=== PATIENT | female | born 1950 | race Caucasian/White ===

== ENCOUNTER 2024-10-22 06:32 | Observation (INO) ==
--- NOTE | 2024-09-22 11:49 | PAT Medication Instructions ---
Medication Instructions Date of Service September 22, 2024 Home Medications albuterol sulfate 90 mcg/actuation aerosol inhaler (Ventolin HFA) 2 puff inhalation QID PRN sob aspirin 81 mg capsule 81 mg PO DAILY atorvastatin 20 mg tablet 20 mg PO HS cholecalciferol (vitamin D3) 125 mcg (5,000 unit) tablet (Vitamin D3) 125 mcg PO DAILY famotidine 40 mg tablet (Pepcid) 40 mg PO HS fluoxetine 10 mg tablet 10 mg PO QAM loratadine 10 mg tablet (Claritin) 10 mg PO DAILY metoprolol tartrate 50 mg tablet 50 mg PO BID multivitamin 1 tab PO DAILY omeprazole 40 mg capsule,delayed release 40 mg PO QAM spironolactone 25 mg tablet 25 mg PO QAM telmisartan 80 mg tablet 80 mg PO QAM ASK your prescriber and surgeon aspirin 81 mg capsule 81 mg PO DAILY DO NOT take the morning of surgery cholecalciferol (vitamin D3) 125 mcg (5,000 unit) tablet (Vitamin D3) 125 mcg PO DAILY loratadine 10 mg tablet (Claritin) 10 mg PO DAILY multivitamin 1 tab PO DAILY spironolactone 25 mg tablet 25 mg PO QAM telmisartan 80 mg tablet 80 mg PO QAM Take morning of surgery With a small sip of water, OTHERWISE NOTHING TO EAT OR DRINK AFTER MIDNIGHT: albuterol sulfate 90 mcg/actuation aerosol inhaler (Ventolin HFA) 2 puff inhalation QID PRN sob (use if needed; please bring rescue inhaler with you to hospital day of surgery if possible) fluoxetine 10 mg tablet 10 mg PO QAM metoprolol tartrate 50 mg tablet 50 mg PO BID omeprazole 40 mg capsule,delayed release 40 mg PO QAM Take evening before surgery albuterol sulfate 90 mcg/actuation aerosol inhaler (Ventolin HFA) 2 puff inhalation QID PRN sob (if needed) atorvastatin 20 mg tablet 20 mg PO HS famotidine 40 mg tablet (Pepcid) 40 mg PO HS metoprolol tartrate 50 mg tablet 50 mg PO BID Other Notes If you have any questions please call us at [phone] or [phone] or [phone] or [phone]
--- NOTE | 2024-09-28 11:21 | Anesthesiology Consultation ---
Date of Service September 28, 2024 Assessment & Plan (1) Encounter for pre-operative examination: - Check BSG DOS (Glucose elevated at 141 on preop labs. No reported hx of diabetes or prediabetes. Will recheck BSG DOS). - Infectious disease screening: Per assessment on 09/28/24- No known recent infectious disease contacts or current infectious disease symptoms. - Outpatient joint assessment: Pt currently scheduled for inpatient pathway. If surgeon requests review for outpatient joint pathway, patient is an acceptable candidate for outpatient joint program from anesthesia standpoint pending surgeon's office assessment that patient is motivated, has good support and completes Same Day Joint Program preop requirements. - Patient concern: Hx PONV. Patient concerned regarding having similar issues with upcoming surgery. Chart Review Chart Review: Acceptable Risk for Surgery and Patient seen in Pre Admission Testing Teaching & Discussion Pre-Anesthesia Teaching/Discussion Notes: Instructed NPO after midnight before surgery,except medications with 15 cc of water. Medication instructions provided according to the PAT guidelines. History Surgery Operation Date: 10/22/24 10:10 Proposed Procedures p Right Total Knee Arthroplasty - Girma Patel, Height/Weight Height: 5 ft 2 in Weight: 94.8 kg Allergies Allergy/AdvReac Type Severity Reaction Status Date / Time adhesive Allergy Unknown Itching, Verified 09/21/24 16:18 "removes skin" Sulfa (Sulfonamide Allergy Unknown Rash Verified 09/21/24 16:18 Antibiotics) Medications Home Medications Medication Instructions Recorded Confirmed Last Taken albuterol sulfate 90 mcg/actuation 2 puff inhalation QID PRN sob 09/21/2409/21 Unknown aerosol inhaler (Ventolin HFA) aspirin 81 mg capsule 81 mg PO DAILY 09/21/24 09/21/24 Unknown atorvastatin 20 mg tablet 20 mg PO HS 09/21/24 09/21/24 Unknown cholecalciferol (vitamin D3) 125 125 mcg PO DAILY 09/21/24 09/21/24 Unknown mcg (5,000 unit) tablet (Vitamin D3) famotidine 40 mg tablet (Pepcid) 40 mg PO HS 09/21/24 09/21/24 Unknown fluoxetine 10 mg tablet 10 mg PO QAM 09/21/24 09/21/24 Unknown loratadine 10 mg tablet (Claritin) 10 mg PO DAILY 09/21/24 09/21/24 Unknown metoprolol tartrate 50 mg tablet 50 mg PO BID 09/21/24 09/21/24 Unknown multivitamin 1 tab PO DAILY 09/21/24 09/21/24 Unknown omeprazole 40 mg capsule,delayed 40 mg PO QAM 09/21/24 09/21/24 Unknown release spironolactone 25 mg tablet 25 mg PO QAM 09/21/24 09/21/24 Unknown telmisartan 80 mg tablet 80 mg PO QAM 09/21/24 09/21/24 Unknown Past Medical History Medical History Acid reflux Anxiety and depression Dyslipidemia HTN (hypertension) Hx of basal cell carcinoma Hx-TIA (transient ischemic attack) Possible (~2012)- weakness, double vision, no residual issues Obesity Osteoarthritis Seasonal allergies Reason for inhaler per patient Sleep apnea CPAP (compliant) Exercise / Class Metabolic Activity II 4-5 Yardwork/Stairs/Walk up hill (one FS: No CP, no SOB) Past Surgical History Surgical History History of postoperative nausea and vomiting Hx of cholecystectomy Hx of colonoscopy Hx of dilation and curettage Hx of hysterectomy Hx of local excision of skin lesion Arm Hx of rotator cuff surgery Past Anesthesia History No Family Hx of Anesthesia Complications and Other (Slow to wake) History of PONV No Hx of PONV Social History Smoking Status: Never smoker Do You Dip or Chew Tobacco: No Hx Alcohol Use: Yes alcohol intake frequency: holidays/special occasions only Hx Substance Use: No substance use type: does not use Review of Systems Patient denies chest pain, shortness of breath, dyspnea on exertion, fever, chills, cough, wheezing, palpitations. Physical Exam Vital Signs BP 127/78 P 61 TEMP 97.9 SP02 95%RA RESP 20 Physical Full cervical extension range of motion. Full TMJ range of motion. TMD > 3.5 finger breaths Mallampati Score II Dentition: missing sides, + caps/crowns Lungs: clear throughout to auscultation Cardiac: regular rate and rhythm, no murmurs noted Spine: normal Carotid arteries: negative bruit Extremities: no LE edema Short, thick neck Lab Results Anesthesia Preop Results Results Anesthesia Widget: WBC 8.77 K/ul (4.8-10.8) 09/28/24 Hgb 12.2 g/dl (12.0-16.0) 09/28/24 Hct 36.5 % (37.0-47.0) L 09/28/24 Plt 256 K/uL (130-400) 09/28/24 Na 135 mmol/L (136-145) L 09/28/24 K 4.5 mmol/L (3.5-5.1) 09/28/24 Cl 101 mmol/L (98-107) 09/28/24 CO2 27 mmol/L (21-32) 09/28/24 BUN 20 mg/dl (6-23) 09/28/24 Creat 0.84 mg/dl (0.6-1.2) 09/28/24 Glucose Level 141 mg/dl (70-99(Fasting)) H 09/28/24 PT 10.9 Seconds (9.0-12.0) 09/28/24 PTT 25 Seconds (21-31) 09/28/24 INR 1.0 (0.9-1.1) 09/28/24 Blood Type A Positive 09/28/24 Antibody Screen NEGATIVE 09/28/24 Testing Electrocardiogram Date: 09/28/24 NSR at 63bpm. "Normal ECG" Chest X-Ray Date: 09/28/24 FINDINGS: Lung volumes are normal. Lungs are clear. There is no pneumothorax or pleural effusion. The heart is mildly enlarged. Mediastinal contours are normal. There is no evidence for pulmonary edema. IMPRESSION: No acute cardiopulmonary findings.
--- NOTE | 2024-10-22 06:28 | History & Physical Bridge Note ---
Date of Service October 22, 2024 History & Physical Bridge Note I have examined the patient, reviewed the History & Physical and in the interval since the performance of the History & Physical I have noted the following changes of clinical significance: no changes noted
[~2024-10-22 06:32] MED LIST: ROPIVACAINE 0.5% 5 MG/ML 30 ML VIAL ONE
[2024-10-22] MEDS ORDERED: PROPOFOL IV EMULSION 10 MG/ML 20 ML VIAL IV ONE (07:03)
[2024-10-22] MEDS ORDERED: MIDAZOLAM HCL 1 MG/ML 2ML VIAL ONE ×2 (07:04→07:50)
[2024-10-22] MEDS ORDERED: PHENYLEPHRINE HCL 10 MG/ML VIAL ONE (07:07)
[2024-10-22] MEDS ORDERED: SODIUM CHLORIDE 0.9% PF INJ 10 ML VIAL ONE (07:07)
[2024-10-22] MEDS: LR 500ML BOLUS, THEN 15ML/HR IV SCH (07:14)
[2024-10-22] MEDS: ACETAMINOPHEN 500 MG TAB PO SCH (07:14)
[2024-10-22] MEDS: GABAPENTIN 300 MG CAP PO SCH (07:14)
[2024-10-22] MEDS: FAMOTIDINE 20 MG TAB PO SCH (07:14)
[2024-10-22] MEDS: SODIUM CHLORIDE 0.9% 1,000 ML IV SCH (07:15)
[2024-10-22] MEDS: LR 60ML/HR IV SCH (07:15)
[2024-10-22] MEDS: dexAMETHasone**PF** 10 MG/ML VIAL IV SCH (07:26)
[2024-10-22] MEDS ORDERED: ATROPINE SULFATE 0.1 MG/ML 10ML SYR IV PRN (07:36)
[2024-10-22] MEDS ORDERED: ePHEDrine sulfate 50 MG/ML AMP IV PRN (07:36)
[2024-10-22] MEDS ORDERED: HYDROmorphone INJ 1 MG/ML SYRINGE IV PRN (07:36)
[2024-10-22] MEDS ORDERED: fentaNYL citrate PF 100 MCG/2 ML VIAL IV PRN (07:36)
[2024-10-22] MEDS ORDERED: ONDANSETRON INJ 2 MG/ML 2 ML VIAL IV PRN ×2 (07:36→11:36)
[2024-10-22] MEDS: TRANEXAMIC ACID 1,000 MG **IV Pre-op IV SCH (07:45)
[2024-10-22] MEDS: ceFAZolin 2000MG 2,000 MG/15 ML SYR IV SCH ×2 (07:58→15:51)
[2024-10-22] MEDS ORDERED: fentaNYL citrate PF 100 MCG/2 ML VIAL ONE (08:34)
[2024-10-22] MEDS ORDERED: ONDANSETRON INJ 2 MG/ML 2 ML VIAL ONE (08:39)
[2024-10-22] MEDS: ORTHO JOINT ANESTHETIC ONE (08:49)
[2024-10-22] MEDS ORDERED: ePHEDrine sulfate 50 MG/5 ML SYR ONE (08:49)
[2024-10-22] MEDS: ROPIV 0.5% 246mg, Ketorolac 30mg, EPINEPHrine 0.5mg in NSS INFIL SCH (09:08)
[2024-10-22] MEDS: TRANEXAMIC ACID 1,000 MG **IV Intra-op IV SCH (09:09)
--- NOTE | 2024-10-22 09:34 | Operative Report ---
PG Post Operative Report Pre & Post Diagnosis Operation Date: 10/22/24 08:00 Pre-Op Diagnosis: Right Knee Osteoarthritis Post-Op Diagnosis: Right Knee Osteoarthritis I identified the patient and participated in the time-out.: Yes Procedure Operation Date: 10/22/24 08:00 Actual Procedures p Right Total Knee Arthroplasty(Right) - Girma Patel DO Surgeon Girma Patel DO Materials Handling Equipment Operator None Estimated Blood Loss 30 Findings Consistent with Post-Op Diagnosis Specimens Right femoral and tibial bone Description of Procedure Implants used: I used a Brittany Persona total knee arthroplasty system with a size 6 narrow PS femur, C tibia, 28 oval patella, and a size 14 CPS polyethylene bearing. All components were cemented in place with Biomet cement. Tasha arrived [facility] for the above procedure. She was seen in the preoperative holding area and the operative extremity was identified and signed. She was given a preoperative antibiotic, TXA, a spinal anesthetic and an adductor nerve block. She was taken back to the operating room and laid on the table in supine position. She was given basic sedation. The operative knee was then prepped and draped in sterile fashion. A timeout was done, and the patient and the operative extremity was properly identified. A midline incision was made directly over the patella. Dissection was taken down to the extensor mechanism. A medial parapatellar arthrotomy was used. The medial retinaculum was released and the fat pad was mostly excised. The knee was flexed and the ACL, PCL, and meniscus were removed. A drill was sent down the center of the femoral canal followed by an intramedullary mandy. Off that mandy a distal femoral cutting block was placed. 9 mm was resected off the distal femur at 5 of valgus. A posterior referencing AP sizing guide was then placed on the distal femur. The femur measured to be a size 6. 2 drill holes were placed in 3 of external rotation. A 4-in-1 cutting block was then impacted into place. Anterior, posterior, and chamfer cuts were then made. The proximal tibia was then exposed. An external tibial alignment guide was placed. A tibial cut guide was then anchored in place and the proximal tibia was then resected. The posterior aspect of the knee was then opened up and any additional meniscus fragments and osteophytes were removed. The tibia measured to be a size C. The tibial plate was then placed in the appropriate rotation and the tibia was drilled and punched. Trial components were then placed. I used a size 14 CPS polyethylene insert. The knee was brought through a full range of motion and felt to be stable. The peg holes for the femoral component were then drilled. The patella was then everted and 9 mm was resected off the posterior aspect of the patella. The patella measured to be a size 28 oval. 3 peg holes were then drilled. A trial patella was placed. The knee was once again brought through a full range of motion and felt to be stable. Trial components were then removed. The surrounding soft tissues were injected with 100 cc of an orthopedic pain control cocktail. All components were then cemented into place with Biomet cement. The final polyethylene insert was then snapped into place. Once cement was dry the tourniquet was deflated. Hemostas is was obtained. A dilute betadyne lavage was then done for 3 minutes. The joint was then irrigated with normal saline solution. The medial parapatellar arthrotomy was then closed with #1 Vicryl suture. The skin was closed with 2-0 Vicryl, 3-0V lock suture, and yudi. A soft compressive dressing was placed. She was then transferred to a hospital bed and taken to the postanesthesia care unit in stable condition. She tolerated the procedure well. I attest to the content of the Intraoperative Record and any orders documented therein. Any exceptions are noted below.
--- NOTE | 2024-10-22 09:58 | XRay Report ---
XR knee RT 1 or 2V routine HISTORY: 73 years-old Female Surgical Post Op right knee arthroplasty COMPARISON: 03/24/2024 TECHNIQUE: 2 views of the right knee FINDINGS: Total joint arthroplasty with patellar resurfacing. Anterior midline skin yudi with expected posto perative soft tissue swelling and deep tissue air. No acute fracture. IMPRESSION: Total joint arthroplasty with expected postoperative changes. ACT 112: Negative or not required by law. The above report was generated using voice recognition software. It may contain grammatical, syntax o r spelling errors. Electronically signed by: Zander Rosenthal M.D. 10/22/2024 9:57 AM
--- NOTE | 2024-10-22 11:03 | Anesthesiology Progress Note ---
Date of Service October 22, 2024 Anesthesia Post Procedure Vital Signs Vital Signs: Temp Pulse Pulse Resp BP Pulse Ox O2 Del Method 10/22/24 11:00 63 14 121/57 L 95 Room Air 10/22/24 10:50 59 L 12 117/57 L 94 Room Air 10/22/24 10:40 61 20 113/55 L 96 Room Air 10/22/24 10:30 36.4 C L 59 L 12 117/62 96 Room Air 10/22/24 10:20 63 14 119/65 96 Room Air 10/22/24 10:10 61 12 125/55 L 92 Room Air 10/22/24 10:00 59 L 12 121/68 95 Oxymask 10/22/24 09:50 65 18 122/73 97 Oxymask 10/22/24 09:40 36.1 C L 63 12 126/100 99 Oxymask 10/22/24 07:04 Room Air 10/22/24 07:04 36.6 C 62 16 183/82 H 97 Room Air O2 Flow Rate 10/22/24 11:00 10/22/24 10:50 10/22/24 10:40 10/22/24 10:30 10/22/24 10:20 10/22/24 10:10 10/22/24 10:00 2 10/22/24 09:50 14 10/22/24 09:40 14 10/22/24 07:04 10/22/24 07:04 Pain Intensity Right Knee: Pain Intensity: 2 Transfer of Care Handoff Completed per policy Notes Mental Status: alert / awake / arousable and participated in evaluation Patient Amnestic to Procedure: Yes Nausea / Vomiting: adequately controlled Pain: adequately controlled Airway Patency, RR, SpO2: stable & adequate BP & HR: stable & adequate Hydration State: stable & adequate Anesthetic Complications: no major complications apparent and Pt Satisfied with anesthetic care
[2024-10-22] MEDS ORDERED: NALOXONE HCL 0.4 MG/1 ML VIAL/CARP IV PRN (11:36)
[2024-10-22] MEDS ORDERED: bisacodyL 10 MG SUPP PR PRN (11:36)
[2024-10-22] MEDS ORDERED: METOCLOPRAMIDE HCL INJ 5 MG/ML 2 ML VIAL IV PRN (11:36)
[2024-10-22] MEDS ORDERED: MAGNESIUM HYDROXIDE SUSP 30 ML UDC PO PRN (11:36)
[2024-10-22] MEDS ORDERED: ALBUTEROL HFA 8 GM INHALER INH PRN (11:36)
[2024-10-22] MEDS ORDERED: HYDROmorphone INJ 0.5 MG/0.5 ML SYR IV PRN (11:36)
[2024-10-22] MEDS: KETOROLAC 30 MG/ML VIAL IV SCH (13:15)
[2024-10-22] MEDS: oxyCODONE HCL IR 5 MG TAB (IMMEDIATE RELEASE) PO PRN (15:24)
[2024-10-22] MEDS: FAMOTIDINE 40 MG TABLET PO SCH (20:23)
[2024-10-22] MEDS: ATORVASTATIN 20 MG TAB PO SCH (20:29)
[2024-10-22] MEDS: SENNA 8.6 MG TAB PO SCH (20:30)
[2024-10-22] MEDS: DOCUSATE SODIUM 100 MG CAP PO SCH (20:30)
[2024-10-22] MEDS: METOPROLOL TARTRATE 50 MG TAB PO SCH (21:59)
[2024-10-22] MEDS: ASPIRIN 81 MG ECTAB PO SCH (21:59)
[2024-10-23 00:23] VITALS: TEMP 97.9
[2024-10-23 07:36] VITALS: RESP 18
--- NOTE | 2024-10-23 07:39 | Orthopedic Progress Note ---
Date of Service October 23, 2024 Assessment & Plan (1) Status post right knee replacement: Overall she is doing fairly well. She is not having much pain in the right knee. She will be seen by physical therapy today for ambulation and range of motion exercises. The nursing staff can change her dressing after physical therapy. She is on aspirin for DVT prophylaxis. She can be discharged to home later today. She will follow-up with orthopedics in 2 weeks. Sam Cordova was seen and examined at bedside this morning. Overall she is doing fairly well. She is not having much pain in the right knee. She has been up and ambulating to the bathroom. She has no complaints.. Review of Systems All systems reviewed & are unremarkable except as noted in HPI & below. Physical Exam On physical exam of the right knee, the dressing is clean and dry. Her leg is out full extension. She has active dorsiflexion plantarflexion of her right ankle.. Results & Data Results & Data Laboratory Results . Diagnostic Findings Postoperative x-rays of the right knee show the prosthesis to be in anatomic alignment without any evidence of fracture, dislocation, or loosening.. PG Care Time/CCT Total # of Minutes Spent Total Time Spent with Patient: Total time spent is greater than 50% in coordination of care (as documented) at patient's floor/unit and/or counseling patient: Coding Level of Care Code 13147 Post Operative Follow-Up Diagnoses Status post right knee replacement Z96.651
--- NOTE | 2024-10-23 07:40 | Discharge Summary ---
Date of Service October 23, 2024 Principal Diagnosis Same as "Discharge Diagnosis" noted below under Discharge Instructions. Discharge Exam On physical exam of the right knee, the dressing is clean and dry. Her leg is out full extension. She has active dorsiflexion plantarflexion of her right ankle.. Discharge Data Procedures Performed Operation Date: 10/22/24 08:00 Actual Procedures p Right Total Knee Arthroplasty(Right) - Girma Patel DO Ordered Studies 10/22/24 05:00 US - OR guided needle placemen Routine Hospital Course (1) Status post right knee replacement: On August 22, 2024 Tasha arrived at [facility] and underwent a right knee replacement without complication. She had a spinal anesthetic that was converted to a general. Postoperatively she was started on aspirin for DVT prophylaxis and transferred to the general orthopedic floors. Her hospital course was uneventful. On postop day #1, her vital signs were stable and her pain was well-controlled. She was able to participate well with physical therapy doing ambulation and range of motion exercises. She was then discharged to home. She will follow-up with orthopedics in 2 weeks. PG Care Time/CCT Total # of Minutes Spent Total Time Spent with Patient: Total time spent is greater than 50% in coordination of care (as documented) at patient's floor/unit and/or counseling patient: Discharge Plan Discharge Items Patient Disposition: Home - Self-Care Reason For Visit: Right Knee Arthritis Discharge Diagnosis: Right knee replacement Activity: As commented below Non-emergency contact: Surgeon Call non-emergency contact if: your wound has increased redness and your wound has increased drainage Follow-up/Referrals: Jessica Oviedo DO [Primary Care Provider] - Diet: Regular Addtl Attending Provider Instructions: Activity and Therapy Recommendations: * If you are using [facility] then therapy will be provided at your home until they feel you have accomplished all of your goals. * If you are using [facility] then Physical Therapy will be provided until they feel you are ready to start Outpatient Physical Therapy. * If you are not using home therapy then Outpatient Physical Therapy should start about 3-5 days from your day of surgery. Therapy will last about 6-10 weeks * It is important not to put a pillow under your knee when you are relaxing or sleeping. It is just as important to make sure you are getting your knee perfectly straight as it is to regain your knee bend. * You were shown a series of exercises in the hospital. Do these exercises three times each day including the exercises you were shown in physical therapy. * Get up and walk several times each day. For the first four weeks, try not to stand or walk for more than one hour at a time. If you do stand or walk for more than one hour, you will not hurt anything, but your leg will likely swell. * As you feel comfortable, you may change from the walker or crutches to a cane and then to independent walking. Medications: * Narcotic You will likely be sent home from the hospital with a prescription for the narcotic pain medication that worked best throughout your stay. * Cefadroxil -take the antibiotic twice a day for 10 days to help prevent infection. * Aspirin Most patients will be required to take Aspirin 81mg twice a day for 6 weeks after surgery. This is obtained [id number] and a prescription is not necessary. * Other medications may be prescribed for specific circumstances. If you have any questions, please call the office at . * Resume previous home medications unless otherwise instructed TEDs/Elastic Stockings: The white elastic stockings help limit swelling and prevent blood clots from forming in your legs.~ The more you wear them, the more they work. Wear them for six weeks. Dressing Care: The dressing can be changed after physical therapy on postop day #1. Daily dry dressing changes for a few days, especially if the incision is still draining some. If the incision is not draining then you may leave the yudi open to air. If there is a little bit of drainage or if the yudi are getting stuck on your clothing then cover the incision with a dry dressing. The yudi will be removed at your 2 week follow-up appointment. Showering: You may shower 5 days from the day of surgery as long as the incision is no longer draining. You may shower with the yudi exposed. Let soapy water run over the yudi and pat them dry. Do not scrub or soak the incision. Diet: You may resume your previous diet. Things To Watch For: * Drainage from the incision site that occurs more than one week after your surgery. * Increased redness at the incision site. * Fever above 102 degrees Fahrenheit. * Unusual chest pain or shortness of breath. * Call [facility] at with any of the above problems Follow-Up Visit: Follow-up with Dr. Patel's office 2-3 weeks after your day of surgery. We will remove your yudi and answer any questions. If you have any additional questions or concerns, Dr Patel is usually in the office at the same time and will be available An appointment was probably scheduled when you signed-up for surgery in the office. If you have any questions call Office Instructions: More detailed instructions as well as Frequently Asked Questions were provided in a folder by our office when you signed-up for surgery. Please review these instructions when you get home. If you have any further questions or concerns, please feel free to call the office at [phone] Pending Studies at Discharge: No Stand-Alone Forms: My [facility] Medications and DC Order Prescriptions: New oxycodone 5 mg tablet 5 mg PO Q6H PRN (Reason: pain) Qty: 30 0RF cefadroxil 500 mg capsule 500 mg PO BID 10 Days Qty: 20 0RF Continued multivitamin Tablet 1 tab PO DAILY atorvastatin 20 mg Tablet 20 mg PO HS famotidine [Pepcid] 40 mg Tablet 40 mg PO HS fluoxetine 10 mg Tablet 10 mg PO QAM omeprazole [Prilosec] 40 mg Capsule,Delayed Release(Dr/Ec) 40 mg PO QAM spironolactone 25 mg Tablet 25 mg PO QAM telmisartan 80 mg Tablet 80 mg PO QAM metoprolol tartrate 50 mg Tablet 50 mg PO BID albuterol sulfate [Ventolin HFA] 90 mcg/actuation Hfa Aerosol Inhaler 2 puff INHALATION QID PRN (Reason: sob) loratadine [Claritin] 10 mg Tablet 10 mg PO DAILY cholecalciferol (vitamin D3) [Vitamin D3] 125 mcg (5,000 unit) Tablet 125 mcg PO DAILY Changed aspirin 81 mg Capsule 81 mg PO BID 42 Days Qty: 0 0RF Discharge Orders: Discharge Order (Routine); Ordered 10/23/24 Ordered By: Girma Patel Admission Data Admit Date/Time: 10/22/24 09:37 Attending Provider: Gimra Patel Admit Provider: Girma Patel Primary Care Provider: Jessica Oviedo
[2024-10-23] MEDS: FLUoxetine HCL 10 MG CAP PO SCH (07:56)
[2024-10-23] MEDS: SPIRONOLACTONE 25 MG TAB PO SCH (07:56)
[2024-10-23] MEDS: LORATADINE 10 MG TAB PO SCH (07:57)
[2024-10-23] MEDS: dexAMETHasone 4 MG TAB PO SCH (09:03)
[2024-10-23] MEDS: LOSARTAN POTASSIUM 50 MG TAB PO SCH (09:04)
[2024-10-23] MEDS: PANTOprazole 40 MG TAB PO SCH (10:07)
[2024-10-23] MEDS: MULTIVITAMIN TAB PO SCH (10:07)
[2024-10-23 10:26] VITALS: BP 110/55; PULSE 72; O2SAT 94
--- OUTSIDE RECORDS SUMMARY | 2024-10-24 06:23 | External Medical Summary | Summary of Care ---
Author Name Unknown Organization [facility] Address [address] [place] [address] Phone [phone] Care Team Providers Care Court Supervisor Name Role Phone Jessica Oviedo DO Primary Care Provider Reason for Visit * Reason Comments Follow Up Encounter Details Date Type Department Care Team ([facility] st Contact Info) Description 10/01/2024 9:30 AM EST Office Visit Otolaryngology [address] [place] [address] Magali Ratliff PA-C [address] [place] [address] Bilateral impacted cerumen* Allergies Active Allergy Reactions Criticality Noted Date Comments Latex 08/31/2024 Sulfa Antibiotics Rash High 05/14/2017 documented as of this encounter (statuses as of 10/01/2024) Medications atorvaSTATin (LIPITOR) 20 MG Tablet 7 Active Famotidine 20 MG Oral Tablet Take 1 Tablet by mouth in the morning and 1 Tablet before bedtime. Active Aspirin 81 MG Tablet Take 1 Tablet by mouth in the morning. Active Fluocinolone Acetonide 0.025 % External Cream (Synalar) Apply to outer ears three times a week 60 g 3 1 Active Vitamin D 125 MCG (5000 UT) Oral Capsule Take by mouth. Ac tive Omeprazole 40 MG Oral Capsule Delayed Release (PriLOSEC) 2 Active Metoprolol Tartrate 50 MG Oral Tablet (Lopressor) 2 Active Premarin 0.625 MG/GM Vaginal Cream (Estrogens, Conjugated) Administer into the vagina daily . Active FLUoxetine HCl 10 MG Oral Capsule (PROzac) Take 1 Capsule by mouth in the morning. Active Telmisartan 80 MG Oral Tablet (Micardis) Take 1 Tablet by mouth in the morning. Active Spironolactone 25 MG Oral Tablet (Aldactone) Take 1 Tablet by mouth in the morning. Active Multivitamin Adult Oral Tablet Chewable Take by mouth. Active Ventolin HFA 108 (90 Base) MCG/ACT Inhalation Aerosol Solution Inhale 2 Puffs by mouth every 4 hours as needed for Cough or Wheezing. 18 g 1 2 Active AeroChamber MV USE WITH VENTOLIN INHALER. 1 Each 2 Active Mupirocin 2 % External Ointment (Bactroban) Apply topically to affected area 3 times a day. Mix with vaseline and apply to wounds on right upper arm until healed 22 g 4 Active documented as of this encounter (statuses as of 10/01/2024) Active Problems No known active problems documented as of this encounter (statuses as of 10/01/2024) Resolved Problems Problem Noted Date Diagnosed Date Resolved Date Encounter for examination fo r normal comparison and control in clinical research program 10/13/2018 06/19/2020 Overview (03/05/2021): DO NOT DELETE [facility] DETECT Study: Project # [id number], Editor Continuity And Script: Young Navarro, PhD. SUMMARY: Goal: Establish test characteristics (sensitivity, specificity, PPV, NPV) of a circulating tumor DNA (ctDNA)-based test for cancer. Hypothesis: Circulating tumor DNA (ctDNA) and elevated protein biomarkers (together, the marker panel) can be detected in asymptomatic individuals with early cancer. Specific Aim 1: Determine the prevalence of a positive marker panel test in a prospective clinical cohort of 10,000 asymptomatic women ages 65 to 75 years. Specific Aim 2: Determine the sensitivity, specificity, positive predictive value (PPV) and negative predictive value (NPV) of a marker panel test to identify histologically proven cancers that develop within 5-years of the marker panel evaluation. CONTACTS: During normal business hours, contact study staff at ; after hours Editor Continuity And Script via the [facility] dozer operator . Please contact study team before resolving/deleting from patients problem list. Study phone number: [phone]. Diagnosis changed due to Research Module. Go to [facility] for study details. Encounter for examination fo r normal comparison and control in clinical research program 10/13/2018 07/18/2022 Overview (03/05/2021): DO NOT DELETE - [facility] Study: Project # [id number], Editor Continuity And Script: Warner Gonzalez, MS, MPH. SUMMARY: Goal: Establish test characteristics (sensitivity, specificity, PPV, NPV) of a circulating tumor DNA (ctDNA)-based test for cancer. - Hypothesis: Circulating tumor DNA (ctDNA) and elevated protein biomarkers (together, the marker panel) can be detected in asymptomatic individuals with early cancer. - Specific Aim 1: Determine the prevalence of a positive marker panel test in a prospective clinical cohort of 10,000 asymptomatic women ages 65 to 75 years. - Specific Aim 2: Determine the sensitivity, specificity, positive predictive value (PPV) and negative predictive value (NPV) of a marker panel test to identify histologically proven cancers that develop within 5-years of the marker panel evaluation. - CONTACTS: During normal business hours, contact study staff at ; after hours Editor Continuity And Script via the [facility] dozer operator . - Please contact study team before resolving/deleting from patients problem list. Study phone number: [phone]. Diagnosis changed due to Research Module. Go to [facility] for study details. documented as of this encounter (statuses as of 10/01/2024) Immunizations Name Administration Dates Next Due COVID-19 mRNA, LNP-s, No Pre serve, 2-Dose Series (Moderna) 01/22/2021,12/19/2020 documented as of this encounter Social History Tobacco Use Types Packs/Day Years Used Date Smoking Tobacco: Never Smokeless Tobacco: Never Tobacco Cessation:Counseling Given: Not Answered Alcohol Use Standard Drinks/Week Comments Yes 0 (1 standard drink = 0.6 oz pur e alcohol) occ Utilities Answer Date Recorded Do you have trouble paying y our heating, water, or electric bill? (Adult - for ages 18 years and over) Not on file 05/04/2024 Is your family able to pay t he heat, water, or electric bill? (Household - for ages 0-17 years) Not on file 05/04/2024 Does your family have access to good internet? (Household - for ages 0-17 years) Not on file 05/04/2024 Social Connections Answer Date Recorded How often do you feel lonely or isolated from those around you? (Adult - for ages 18 years and over) Not on file 05/04/2024 Comments No Sex and Gender Information Value Date Recorded Sex Assigned at Female 06/21/2022 7:04 PM EDT Legal Sex Female 6:27 AM EST Gender Identity Female 06/21/2022 7:04 PM EDT Sexual Orientation Straight 06/21/2022 7: 04 PM EDT documented as of this encounter Last Filed Vital Signs Vital Sign Reading Time Taken Comments Blood Pressure - - Pulse - - Temperature 36.2 C (97.1 F) 10/01/2024 9:31 AM ES T Respiratory Rate - - Oxygen Saturation - - Inhaled Oxygen Concentration - - Weight 87.1 kg (192 lb) 10/01/2024 9:31 AM EST Height 160 cm (5' 2.99") 10/01/2024 9:31 AM EST Body Mass Index 34.02 10/01/2024 9:31 AM EST documented in this encounter Progress Notes * Magali Ratliff PA-C - 10/01/2024 9:30 AM EST 10/01/2024 SUBJECTIVE: Tasha Duggan is a 73 year old female. Chief Complaint Patient presents with Follow Up Nursing Notes: Sobia Garcia LPN 10/01/24 0939 Signed Patient presents today for follow up. States her ears are doing good. Left ear feels she needs her ears cleaned out. HPI: Patient return for routine appt for cerumen removal. She reports left aural fullness and decreased left hearing. Patient Active Problem List Diagnosis (none) - all problems resolved or deleted Current Outpatient Medications Medication Sig Dispense Refill atorvaSTATin (LIPITOR) 20 MG Tablet Famotidine 20 MG Oral Tablet Take 1 Tablet by mouth in the morning and 1 Tablet before bedtime. Aspirin 81 MG Tablet Take 1 Tablet by mouth in the morning. Fluocinolone Acetonide 0.025 % External Cream (Synalar) Apply to outer ears three times a week 60 g3 Vitamin D 125 MCG (5000 UT) Oral Capsule Take by mouth. Omeprazole 40 MG Oral Capsule Delayed Release (PriLOSEC) Metoprolol Tartrate 50 MG Oral Tablet (Lopressor) Premarin 0.625 MG/GM Vaginal Cream (Estrogens, Conjugated) Administer into the vagina daily . FLUoxetine HCl 10 MG Oral Capsule (PROzac) Take 1 Capsule by mouth in the morning. Telmisartan 80 MG Oral Tablet (Micardis) Take 1 Tablet by mouth in the morning. Spironolactone 25 MG Oral Tablet (Aldactone) Take 1 Tablet by mouth in the morning. Multivitamin Adult Oral Tablet Chewable Take by mouth. Ventolin HFA 108 (90 Base) MCG/ACT Inhalation Aerosol Solution Inhale 2 Puffs by mouth every 4 hours as needed for Cough or Wheezing. 18 g 1 AeroChamber MV USE WITH VENTOLIN INHALER. 1 Each 0 Mupirocin 2 % External Ointment (Bactroban) Apply topically to affected area 3 times a day. Mix with vaseline and apply to wounds on right upper arm until healed 22 g 0 No current facility-administered medications for this visit. Review of patient's allergies indicates: Allergen Reactions Sulfa Antibiotics Rash Latex REVIEW OF SYSTEMS Negative for constitutional, heart, lung, liver, kidney, digestive, hematologic, neurologic, rheumatologic, or endocrine complaints except as per history of present illness and past medical history. OBJECTIVE: Temp 36.2 C (97.1 F) (Tympanic) | Ht 1.6 m (5' 2.99") | Wt 87.1 kg (192 lb) | BMI 34.02 kg/m | BSA 1.97 m PHYSICAL EXAM: General: alert, healthy and no distress Ears: Examination of the ears revealed that the auricles were normally formed with no lesions. The external auditory canals were cleaned of bilateral impacted cerumen with forceps and suction under microscope guidance-see below procedure documentation. The tympanic membranes were intact and freely mobile to pneumatoscopy without perforation or significant retraction pockets. Procedure performed by myself-In order to better examine the ears the patient was brought to the microscope room where her ears were examined under the operating microscope with impacted cerumen removed from both canals with suction and forceps atraumatically. She tolerated procedure well. Encounter Diagnoses Name Primary? Bilateral impacted cerumen Yes Plan: Cerumen removed. She will return in 6 weeks. Magali Ratliff PA-C 10/01/2024 8:46 AM documented in this encounter Nursing Notes * Sobia Garcia LPN - 10/01/2024 9:33 AM EST Patient presents today for follow up. States her ears are doing good. Left ear feels she needs her ears cleaned out. documented in this encounter Plan of Treatment Upcoming Encounters Date Type Department Care Team (Late st Contact Info) Description 12/03/2024 2:30 PM EST Office Visit [address]ol[address] [place] [address] Magali Ratliff PA-C [address] [place] [address] 01/14/2025 10:00 AM EST Office Visit Otolaryngology [address] [place] [address] Magali Ratliff PA-C [address] [place] [address] 02/25/2025 1:30 PM EDT Office Visit Ot[address] [place] [address] Magali Ratliff PA-C [address] [place] [address] 04/08/2025 10:30 AM EDT Office Visit Otolaryngology [facility] [address] [facility] [address] [place] [address] Magali Ratliff PA-C [address] [place] [address] 09/01/2025 10:40 AM EDT Office Visit Dermatology [facility] [address] [facility] [place] [address] Dash Romero PA-C [address] [place] [address] Health Maintenance Due Date Last Done Comments Depression Screening 1962 Hepatitis C Screening 1968 DTap/Tdap Vaccines (1 - Tdap) 1969 DXA Scan 10/03/2027 10/03/2020, 10/03/2020 Pneumococcal Vaccine: 65+ Years Completed 02/01/2016, 10/28/2014 Zoster Vaccines Completed 07/22/2019, 04/18, 01/11/2015 Cologuard Discontinued 10/15/2020, 10/09/2020 Fecal Occult Blood Test Discontinued 12/25/2020 Colonoscopy Discontinued 02/15/2021, 01/29/2010 Colorectal Cancer Screening Discontinued COVID-19 Vaccine Completed 08/30/2024, 06/2021, 12/19/2020 Influenza Vaccine (FLU shot) Completed 08/30/2024, 08/28/2021, 08/31/2020, Additional history exists HPV (Gardasil) Vaccine Aged Out No lo nger eligible based on patient's age to complete this topic Hepatitis B Vaccine Aged Out No longe r eligible based on patient's age to complete this topic MENINGOCOCCAL (MENACTRA/MENVEO) Aged Out No longer eligible based on patient's age to complete this topic Sigmoidoscopy Discontinued documented as of this encounter Medical Devices Not on filedocumented as of this encounter Visit Diagnoses Diagnosis Bilateral impacted cerumen- Primary Impacted cerumen documented in this encounter Care Teams Court Supervisor Relationship Specialty Start Date End Date Jessica Oviedo DO [address] [place] [address] [place] [address] PCP - General Family Medicine 12/12/17 documented as of this encounter
== END 2024-10-23 11:18 | disposition home or self-care (01) ==
LOC: 3E 06:32 → ASU 06:32